=== PATIENT | male | born 1945 | race Caucasian/White ===

== ENCOUNTER 2020-01-04 10:32 | Outpatient (CLI) | payer MEDICARE, SELFPAY ==
[2020-01-04 11:53] LABS: Basophils Absolute Auto 0.1 K/mm3 (0.0-0.1); Basophils Percent Auto 1.1 % (0.2-1.2); Eosinophils Absolute Auto 0.5 K/mm3 (0-0.3); Hematocrit 33.9 % (42.0-52.0); Hemoglobin 9.9 g/dL (14.0-18.0); Immature Granulocyte Absolute 0.07 K/mm3 (0.00-0.031); Immature Granulocyte Percent A 0.7 % (0-0.5); Lymphocytes Absolute Auto 1.94 K/mm3 (0.9-3.2); Lymphocytes Percent Auto 18.9 % (18.3-44.2); Mean Corpuscular HGB Conc 29.2 g/dl (32-36); Mean Corpuscular Hemoglobin 26.1 pg (26-34); Mean Corpuscular Volume 89.2 fl (80-100); Mean Platelet Volume 10.4 fl (7.4-10.4); Monocytes Absolute Auto 0.8 K/mm3 (0.1-0.6); Monocytes Percent Auto 7.4 % (2.6-8.5); Neutrophils Absolute Auto 6.9 K/mm3 (1.3-6.7); Neutrophils Percent Auto 66.9 % (45.5-73.1); Platelet Count Result 295 k/mm3 (150-375); Red Cell Distribution Width 18.2 % (11.5-14.5); White Blood Count 10.3 K/mm3 (4.5-10.0)
[2020-01-04 11:58] LABS: Platelet Estimate Adequate (Adequate)
[2020-01-04 12:01] LABS: Anisocytosis 1+ (NORMAL); Ovalocytes 1+ (NORMAL)
[2020-01-04 12:02] LABS: Giant Platelets Present; Poikilocytosis 1+ (NORMAL)
[2020-01-04 13:36] LABS: Immature Reticulocyte Fraction 37.2 % (3.0-15.9); Reticulocyte Hemoglobin Conten 30.2 pg (28.2-35.7); Reticulocyte Percent 5.78 % (0.7-4.3); Reticulocytes Absolute 0.22 B/L (32.2-175.7)
[2020-01-04 14:25] LABS: Iron 158 ug/dL (49-181)
[2020-01-04 14:39] LABS: Percent Iron Saturation 37 % (20-50)
[2020-01-04 16:58] LABS: Alanine Aminotransferase 54 U/L (4-50); Albumin Level 3.7 g/dL (3.5-5.1); Alkaline Phosphatase 88 U/L (38-126); Aspartate Amino Transferase 35 U/L (17-59); Bilirubin,Total 0.8 mg/dL (0.2-1.3); Blood Urea Nitrogen 12 mg/dL (9-20); Calcium 9.7 mg/dL (8.4-10.2); Carbon Dioxide 29 mmol/L (22-30); Chloride 98 mmol/L (98-107); Estimated Glomerular Filt Rate > 60; Glucose 147 mg/dL (75-110); Lactate Dehydrogenase 388 U/L (313-618); Potassium 4.7 mmol/L (3.4-5.0); Sodium 142 mmol/L (137-145)
[2020-01-04 18:03] LABS: Folic Acid 12.2 ng/mL (2.76->20)
[2020-01-07 00:48] LABS: Methylmalonic Acid 186 nmol/L (87-318)
== END 2020-01-04 10:33 | disposition home or self-care (01) ==
PROVIDERS: PCP Internal Medicine; Visit Provider Internal Medicine Hematology & Oncology
DX: D64.9 Anemia, unspecified (principal)
CPT/HCPCS: 36415; 80053; 82607; 82728; 82746; 83540; 83550; 83615; 83921; 84443; 85025; 85044; 85046

== ENCOUNTER 2020-04-26 08:02 | Outpatient (CLI) | payer MEDICARE, SELFPAY | END 2020-04-26 08:03 | disposition home or self-care (01) | PROVIDERS: Visit Provider Otolaryngology | DX: R42 Dizziness and giddiness (principal) | CPT/HCPCS: 92537; 92540; 92546; 92557; 92567 ==

== ENCOUNTER 2020-05-08 08:37 | Outpatient (RCR) | payer MEDICARE, SELFPAY ==
--- NOTE | 2020-05-08 10:35 | PTOPEVAL ---
PHYSICAL THERAPY EVALUATION Thank you for referring Waqas Bruner to [facility]. PT eval reveals mild loss of balance with narrower base of support and eyes closed positioning as well as decrease in blood pressure with change of body position. Audi was given balance exercises to work on, but is not in need of skilled PT at this time. 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 Hx Hypercholesterolemia Yes Hx Hypertension Yes Hx Pacemaker Yes: 01/2020 Respiratory History Hx Respiratory Disorders No Significant History Gastrointestinal History Hx Gastroesophageal Reflux Disease Yes Genitourinary History Hx Other Genitourinary Disorders Yes: biopsy of prostate - okay Musculoskeletal History Hx Joint Replacement Yes: L TKA 2012 Hx Orthopedic Surgery Yes: R knee arthroscopic surgeries Endocrine History Hx Diabetes Yes Other History Hx Other Surgeries Yes: abdominal hernia repair 2002 Evaluation Information Problem Diagnosis vertigo Onset began 4-5 yrs ago Subjective Information At it's worse - unable to Query Text:As Reported By Patient/ function - cheryl auguste - had Family to miss 3-4 wks of bowling, also unable to drive Now more light headedness - now when getting up - from lying down to standing - needs to hold onto wall at times - will lose balance - will always go off to right side Does get dizzier with eyes shut - if turns head, washes hair in shower Usually good when sitting Will sometimes get increase in dizziness with rolling over in bed Prior Level of Function Activity Level (Last 3 Months) Occupation retired - [employer] Medications Home Meds (Include:
== END 2020-05-08 15:11 | disposition home or self-care (01) ==
LOC: ANHPT 08:37
PROVIDERS: Visit Provider Otolaryngology
DX: R42 Dizziness and giddiness (principal)
CPT/HCPCS: 97162

== ENCOUNTER 2020-06-19 10:10 | Outpatient (CLI) | payer MEDICARE, SELFPAY ==
[2020-06-19 10:39] LABS: Basophils Absolute Auto 0.1 K/mm3 (0.0-0.1); Basophils Percent Auto 1.1 % (0.2-1.2); Eosinophils Absolute Auto 0.2 K/mm3 (0-0.3); Eosinophils Percent Auto 2.6 % (0-4.4); Hematocrit 31.9 % (42.0-52.0); Hemoglobin 9.5 g/dL (14.0-18.0); Immature Granulocyte Absolute 0.04 K/mm3 (0.00-0.031); Immature Granulocyte Percent A 0.5 % (0-0.5); Lymphocytes Absolute Auto 1.39 K/mm3 (0.9-3.2); Lymphocytes Percent Auto 16.6 % (18.3-44.2); Mean Corpuscular HGB Conc 29.8 g/dl (32-36); Mean Corpuscular Hemoglobin 25.5 pg (26-34); Mean Corpuscular Volume 85.5 fl (80-100); Mean Platelet Volume 10.6 fl (7.4-10.4); Monocytes Absolute Auto 0.5 K/mm3 (0.1-0.6); Monocytes Percent Auto 6.3 % (2.6-8.5); Neutrophils Absolute Auto 6.1 K/mm3 (1.3-6.7); Neutrophils Percent Auto 72.9 % (45.5-73.1); Platelet Count Result 328 k/mm3 (150-375); Red Blood Count 3.73 M/mm3 (4.6-6.20); Red Cell Distribution Width 16.8 % (11.5-14.5); White Blood Count 8.4 K/mm3 (4.5-10.0)
[2020-06-19 10:44] LABS: Blood Urea Nitrogen 15 mg/dL (8-26); Carbon Dioxide 27 mmol/L (22-30); Chloride 100 mmol/L (98-109); Estimated Glomerular Filt Rate 60; Glucose 230 mg/dL (70-105); Potassium 4.6 mmol/L (3.5-4.9); Sodium 140 mmol/L (138-146)
[2020-06-19 12:33] LABS: Iron 20 ug/dL (49-181)
[2020-06-19 12:45] LABS: Percent Iron Saturation 4 % (20-50)
[2020-06-19 13:13] LABS: Ferritin 8.11 ng/mL (11.1-264)
== END 2020-06-19 10:11 | disposition home or self-care (01) ==
PROVIDERS: PCP Internal Medicine; Visit Provider Internal Medicine Hematology & Oncology
DX: D64.9 Anemia, unspecified (principal)
CPT/HCPCS: 36415; 80048; 82728; 83540; 83550; 85025